=== PATIENT | male | born 1960 | race Caucasian/White ===

== ENCOUNTER → 2017-03-10 | Outpatient (CLI) | payer BC ==
[~2017-03-10] VITALS: Ht 180.3 cm; Wt 235.4 kg
[~2017-03-10] MED LIST: CEPH500C PO
[2017-03-10 14:12] VITALS: BP 163/91; PULSE 77; Ht 180.3 cm; Wt 235.4 kg
== END | disposition home or self-care (01) ==
LOC: C.NEUR 12:45
PROVIDERS: ATTEND Physician Assistant
DX: G47.30 Sleep apnea, unspecified (principal); R06.81 Apnea, not elsewhere classified; R53.83 Other fatigue; I10 Essential (primary) hypertension